=== PATIENT | male | born 1935 | race Caucasian/White ===

== ENCOUNTER 2016-04-11 15:47 | Emergency (ER) | payer MEDICARE, OTHER ==
[2016-04-11] MEDS ORDERED: KETOROLAC TROMETHAMINE 30 MG/ML VIAL IV ONE (16:45)
[2016-04-11] MEDS ORDERED: ONDANSETRON HCL/PF 2 MG/ML VIAL IV ONE (16:47)
[2016-04-11] MEDS ORDERED: MORPHINE SULFATE 4 MG/ML SYRG IV ONE (16:47)
[2016-04-11] MEDS ORDERED: NORMAL SALINE 1,000 ML IV ONE (16:49)
[2016-04-11] MEDS ORDERED: MORPHINE SULFATE 4 MG/ML SYRG ONE (16:51)
[2016-04-11] MEDS ORDERED: ONDANSETRON HCL/PF 2 MG/ML VIAL ONE (16:51)
[2016-04-11] MEDS ORDERED: KETOROLAC TROMETHAMINE 30 MG/ML VIAL ONE (16:51)
[2016-04-11 16:55] LABS: Hematocrit 37.1 % (42.0-52.0); Hemoglobin 12.3 gm/dL (13.5-18.0); Mean Cell Volume 94.2 fl (78-100); Mean Corpuscular Hemoglobin 31.2 pg (27-31); Mean Corpuscular Hgb Conc 33.2 g/dl (32-36); Mean Platelet Volume 10.8 fl (6.0-9.5); Neutrophil # 6.2 K/mm3 (1.3-6.0); Neutrophil % 79.7 % (42-75.0); Platelet Count 206 K/mm3 (150-450); Red Blood Count 3.94 M/mm3 (4.7-6.0); Red Cell Distribution Width 13.2 % (11.5-14.0); White Blood Count 7.7 K/mm3 (4.0-10.5)
[2016-04-11 17:06] LABS: Prothrombin Time (Patient) 10.4 Seconds (9.4-11.4)
[2016-04-11 17:07] LABS: Albumin * 3.8 gm/dl (3.4-5.0); BUN/Creatinine Ratio 17.1 (9.0-21.6); Bilirubin, Total 0.2 mg/dL (0.0-1.1); Ca. Corrected For Albumin 8.7 mg/dL (8.4-10.2); Calcium * 8.9 mg/dL (7.9-10.9); Total Protein 7.5 gm/dL (6.2-8.2)
[2016-04-11 17:08] LABS: Partial Thrombolplastin Time 26.5 Seconds (24-32)
--- NOTE | 2016-04-11 17:34 | ERNOTE ---
Lower Extremity HPI - Narrative Date of Service: 04/11/16 - General Lower Extremities Pain: hip: left - short and deformed/painful Time Seen by Provider: 04/11/16 16:03 Exam Limitations: no limitations - Immun/Allergies/Home Medications Immunizations: IMMUNIZATION HX History of Influenza Vaccine No Hx Pneumococcal Vaccination No Allergies/Adverse Reactions: Allergies Allergy/AdvReac Type Severity Reaction Status Date / Time acetaminophen [From Percocet] Allergy Verified 04/11/16 15:56 oxycodone HCl [From Percocet] Allergy Verified 04/11/16 15:56 penicillin G Allergy Verified 04/11/16 15:56 Home Medications: HOME MEDICATIONS Aspirin 12/18/15 [Last Taken Unknown] Atorvastatin Calcium 12/18/15 [Last Taken Unknown] Glucosomine 12/18/15 [Last Taken Unknown] Lisinopril-Hctz 20-12.5 mg Tab 12/18/15 [Last Taken Unknown] MSM 12/18/15 [Last Taken Unknown] Meloxicam 12/18/15 [Last Taken Unknown] Metformin HCl 12/18/15 [Last Taken Unknown] Nortriptyline HCl 12/18/15 [Last Taken Unknown] Pregabalin 12/18/15 [Last Taken Unknown] Probiotic 12/18/15 [Last Taken Unknown] Vitamin B12 12/18/15 [Last Taken Unknown] - History of Present Illness Narrative: Patient presents to the ER with left hip pain. Patient was at his home watching TV turned the wrong way and had excruciating pain with left hip and unable to move his leg. Patient has had his hip replaced just over 2 months ago he was supposed to have a follow-up appointment tomorrow. 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 He was brought in by paramedics. Denies any abdominal pain chest pain he is able to move the toes. Occurred: just prior to arrival Location of Incident: home Method of Injury: Reports: unknown Associated Symptoms: Reports: unable to bear weight. Denies: dizzy/light headedness, headache, weakness, sensory loss, chest pain, vomiting/diarrhea, bowel/bladder problems Review of Systems - Review of Systems Constitutional: Absent: fever, chills, diaphoresis, weakness, fatigue Respiratory: Absent: shortness of breath, cough Cardiology: Absent: chest pain, palpitations Musculoskeletal: Absent: back pain, muscle pain Neurological: Absent: anxiety, depressed, headache, dizziness/light-headedness, seizure, weakness All Other Systems: All systems neg except as marked - Patient's Past Medical History Patient History - Medical: Diabetes Type 2 Patient History - Cardiac/Respiratory: Hypertension Patient History - Cancer: No Hx of Cancer Patient History - Surgical Procedures: Back Surgery, Cardiac stent, Total Hip Replacement Patient History - Other: None - Social History Living Situations: home - Immunizations Hx Pneumococcal Vaccination: No History of Influenza Vaccine: No Physical Exam - Physical Exam General Appearance: Present: wd/wn, alert, no apparent distress Ears, Nose, Throat: Present: normal ENT inspection, normal pharynx Neck: Present: normal inspection, nontender Respiratory: Present: no respiratory distress, normal breath sounds, no accessory muscle use, chest nontender, lungs clear Cardiovascular/Chest: Present: regular rate, rhythm, no murmur, normal peripheral pulses Gastrointestinal/Abdominal: Present: normal bowel sounds, nontender, nondistended, soft Back Exam: Present: normal inspection, normal range of motion, no CVA tenderness , no vertebral tenderness Extremity Exam: Present: other - hip and leg shortened, internally rotated, good pedal pulses, distal neurovascular intact. Neurological Exam: Present: alert, oriented, normal mood/affect, no motor/ sensory deficits Skin Exam: Present: normal color, warm/dry Lymphatic Exam: Present: no adenopathy ED Progress - Results and Orders Patient's Lab Results:: I have reviewed the patient's lab results. - Vital Signs Patient's Vital Signs:: I have reviewed the patient's vital signs. Vital Signs: Vital Signs 04/11/16 04/11/16 15:51 17:06 Temperature 36.0 C L Pulse Rate 95 89 Respiratory 12 18 Rate Blood Pressure 169/79 197/95 O2 Sat by Pulse 96 99 Oximetry - X-Ray X-Ray #1 X-Ray: hip Interpretation: Reviewed by me X-ray Comments: Superior left hip dislocation from the prosthesis. X-Ray #2 X-Ray: hip Interpretation: Reviewed by me X-ray Comments: Post hip reduction shows good reduction of left hip with good alignment. - Progress/Reassessment Chief Complaint: Hip Pain/Injury Progress:: Pain free at discharge - Transfer of Care Expected Disposition: Discharge Additional Notes: Patient did well we are able to reduce under constant sedation closed reduction of the left hip. Discussed the case with Dr. Jones, orthopedics sound person will go ahead and discharge patient home he will be put in a abduction pillow of the left hip he is to wear no flexion at all at the hip joint. Has appointment tomorrow with his orthopaedics, he is to keep that appointment. Return back to the ER with any change or worsening symptoms next Post reduction shows good reduction of the hip with distal neurovascular intact. Procedures Date and time: 04/11/15 7:00 pm Location: Left hip superior dislocation Pre-Proc Neuro Vasc Exam: normal Splint: hip abduction immobilizer Alignment good: Yes Splint applied by: ED physician Post-Proc Neuro Vasc Exam: normal Complications: Pt genesis procedure well Comment: Closed reduction of left hip dislocation done under conscious sedation by anesthesia. With traction and countertraction and abduction, able to do a close reduction of the left hip dislocation without a problems complications distal neurovascular intact good pedal pulses. Departure Clinical Impression: Hip dislocation, left Qualifiers: Encounter type: initial encounter Qualified Code(s): S73.005A - Unspecified dislocation of left hip, initial encounter - Departure Disposition: Home Follow Up Needed Condition: Stable Instructions: Prosthetic Hip Dislocation, Closed Reduction for Artificial Hip Dislocation, Closed Reduction for Artificial Hip Dislocation, Care After Additional Instructions: Keep her appointment with orthopedic doctor tomorrow follow-up as needed return back to the ER with any change or worsening symptoms
[2016-04-11 20:12] VITALS: BP 168/86
== END 2016-04-11 19:50 | disposition home or self-care (01) ==
LOC: ER 15:47
PROC: 0SSBXZZ Reposition Left Hip Joint, External Approach (ICD-10-PCS; principal; 2016-04-11)
DX: S73.005A Unspecified dislocation of left hip, initial encounter (principal); X50.1XXA Overexertion from prolonged static or awkward postures, initial encounter; Y92.009 Unspecified place in unspecified non-institutional (private) residence as the place of occurrence of the external cause; Z96.642 Presence of left artificial hip joint